=== PATIENT | male | born 1980 | race Caucasian/White ===

== ENCOUNTER 2025-03-02 15:43 | Emergency (ER) | payer OTHER ==
[~2025-03-02] VITALS: Ht 167.6 cm; Wt 104.5 kg
[2025-03-02] MEDS ORDERED: ISOVUE-370 76% 100 ML VIAL As Ordered ONE (16:09)
[2025-03-02] MEDS: TETANUS/DIPHTH/ACEL. PERTUSSIS 0.5 ML SYR IM.IMMUN ONE (16:15)
[2025-03-02] MEDS: TETRACAINE 0.5% OPHTH SOLN 4ML OD ONE (16:20)
[2025-03-02 16:29] LABS: VENOUS BASE EXCESS -0.2 (-2.0-2.0); VENOUS HCO3 27.7 MMOL/L (23.0-27.0); VENOUS O2 SATURATION 47.5 % (60.0-80.0); VENOUS PARTIAL PRESSURE CO2 56.4 mmHg (38.0-50.0); VENOUS PARTIAL PRESSURE O2 28.3 mmHg (30.0-50.0); VENOUS PH 7.309 UNITS (7.330-7.430); VENOUS STANDARD HCO3 22.8 MMOL/L; VENOUS TOTAL CO2 29.4 MMOL/L (24.0-28.0)
[2025-03-02 16:37] LABS: BASO # 0.0 10^3/uL (0.0-0.2); BASO % 0.2 % (0.0-1.0); EOS # 0.0 10^3/uL (0.0-0.5); EOS % 0.2 % (0.0-3.0); LYMPH # 2.0 10^3/uL (1.5-5.0); LYMPH % 15.1 % (24.0-44.0); MONO # 0.5 10^3/uL (0.0-0.8); MONO % 3.8 % (2.0-8.0); NEUTROPHILS # 10.4 10^3/uL (1.5-8.5); NEUTROPHILS % 79.9 % (36.0-66.0); PLATELET COUNT, AUTOMATED 353 10^3/uL (150-450)
[2025-03-02 16:48] LABS: INR 0.93
[2025-03-02 16:56] LABS: ETHYL ALCOHOL (ETHANOL) 0.298 % (0.000-0.010)
[2025-03-02 16:57] LABS: ALT/SGPT 93 U/L (7.0-40); AST/SGOT 77 U/L (<34); CALCIUM LEVEL 9.3 MG/DL (8.5-10.1); CARBON DIOXIDE LEVEL 27 MMOL/L (20-31); CHLORIDE LEVEL 105 MMOL/L (98-107); CREATININE FOR GFR 1.00 MG/DL (0.70-1.30); GLOMERULAR FILTRATION RATE > 90.0 (>60); POTASSIUM SERUM 3.9 MMOL/L (3.5-5.1); SODIUM LEVEL 146 MMOL/L (136-145)
[2025-03-02] MEDS: ceFAZolin SODIUM 2 GM in DEXTROSE 5% (D5W) ADV/MINI-BAG 50 ML IV ONE (17:00)
[2025-03-02] MEDS: NS 500 ML IV ONE (17:00)
[2025-03-02] MEDS: ACETAMINOPHEN *IV* 1,000 MG in IV 1 EA IV ONE (17:14)
[2025-03-02] MEDS: MORPHINE 2 MG/ML 1 ML VIAL IV PRN (17:14)
[2025-03-02] MEDS: NS (Normal Saline) 0.9% 1,000 ML IV ONE (17:55)
[2025-03-02 19:00] VITALS: BP 125/68; TEMP 98.9; O2SAT 95
== END 2025-03-02 19:13 | disposition short-term general hospital (02) ==
LOC: M ED 15:43 → EDBD 15:43 → M ED 19:13
DX: S01.21XA Laceration without foreign body of nose, initial encounter (principal); S06.0X0A Concussion without loss of consciousness, initial encounter; S32.010A Wedge compression fracture of first lumbar vertebra, initial encounter for closed fracture; Y92.9 Unspecified place or not applicable; Y93.9 Activity, unspecified; Y99.9 Unspecified external cause status; V49.50XA Passenger injured in collision with unspecified motor vehicles in traffic accident, initial encounter; F12.10 Cannabis abuse, uncomplicated; F10.10 Alcohol abuse, uncomplicated; Z23 Encounter for immunization
CPT/HCPCS: 70450; 70486; 71045; 71260; 72125; 72128; 72131; 74177; 80047; 80048; 80076; 82077; 82150; 82803; 83605; 83690; 85025; 85610; 85730; 86850; 86900; 86901; 90471; 90715; 93005; 93041; 94760; 96365; 96375; 99285; J0131; J0688; Q9967